=== PATIENT | male | born 1980 | race Caucasian/White ===

== ENCOUNTER 2018-05-17 18:29 | Emergency (ER) | payer SELFPAY ==
[2018-05-17] MEDS: KETOROLAC TROMETHAMINE 30 MG/ML SOL IM ONE (18:47)
[2018-05-17] MEDS: CEFTRIAXONE 1 GM PDS IM ONE (18:49)
[2018-05-17] MEDS ORDERED: CEFTRIAXONE 1 GM PDS ONE (19:04)
[2018-05-17] MEDS ORDERED: KETOROLAC TROMETHAMINE 30 MG/ML SOL ONE (19:04)
[2018-05-17] MEDS ORDERED: LIDOCAINE HCL 1% MPF 30 SOL ONE ×2 (19:05→19:07)
[2018-05-17] MEDS ORDERED: LIDOCAINE HCL 2% (100 MG) CARP ONE (19:06)
[2018-05-17 19:11] LABS: BASOPHILS % (AUTO) 2 % (0-3); EOSINOPHILS % (AUTO) 2 % (0-9); HEMATOCRIT 51 % (39-53); HEMOGLOBIN 17.5 gm/dl (13.5-17.7); LYMPHOCYTES % (AUTO) 22.9 % (10-50); MEAN CORPUSCULAR HGB CONC 34.5 gm/dl (32.0-36.0); MEAN CORPUSCULAR VOLUME 87 fL (80-100); MONOCYTES % (AUTO) 8.1 % (0-12); NEUTROPHILS % (AUTO) 65.5 % (37-80)
[2018-05-17 19:17] LABS: CALCIUM 8.3 mg/dl (8.5-10.1); CARBON DIOXIDE 27.6 mEq/L (21-32); CREATININE 0.8 mg/dl (0.80-1.30); CRP INFLAMMATORY 0.48 mg/dl (0.00-0.33); POTASSIUM 3.6 mMol/L (3.5-5.1)
[2018-05-17 19:57] VITALS: RESP 20
[2018-05-17] MEDS: ACETAMINOPHEN 500 MG 500 MG TAB PO ONE (19:58)
[2018-05-17] MEDS ORDERED: ACETAMINOPHEN 500 MG 500 MG TAB ONE (19:59)
[2018-05-17 20:29] VITALS: BP 120/69; PULSE 70; TEMP 98.7; O2SAT 94
== END 2018-05-17 20:37 | disposition home or self-care (01) | DRG 607 ==
LOC: ED 18:29
DX: S30.861A Insect bite (nonvenomous) of abdominal wall, initial encounter (principal); L03.818 Cellulitis of other sites; R50.9 Fever, unspecified
CPT/HCPCS: 36415; 80048; 85025; 87040; 96372; 99282; 99283; J0696; J1885; J2001